=== PATIENT | female | born 1985 | race Hispanic/Latino ===

== ENCOUNTER 2024-03-28 14:03 | Emergency (ER) | payer BC, OTHER, MEDICARE ==
[~2024-03-28] VITALS: Ht 149.9 cm; Wt 63.5 kg
[~2024-03-28 14:03] MED LIST: ALPR-411 PO; ALPR-412 PO; CARB200T PO; FLUO60TA PO; IBUP-2070 PO; LEUP3.75 IM; NORE5TAB7 PO; PROZAC; TEGRETOL; TOPAMAX; TOPI25TA48 PO; TYL3 PO; ZOLP5TAB8 PO
[2024-03-28 14:27] LABS: BASOPHILS # (AUTO) 0.04 K/uL (0.00-0.20); BASOPHILS % (AUTO) 0.7 % (0.0-5.0); EOSINOPHILS # (AUTO) 0.07 K/uL (0.00-0.70); EOSINOPHILS % (AUTO) 1.2 % (0.0-8.0); HEMATOCRIT 39.6 % (36-48); LYMPHOCYTES # (AUTO) 2.6 K/uL (1.0-4.8); MEAN CORPUSCULAR HEMOGLOBIN 30.6 pg (27.0-33.0); MEAN CORPUSCULAR HGB CONC 35.1 g/dL (32.0-36.0); MEAN CORPUSCULAR VOLUME 87.2 fL (79-99); MONOCYTES # (AUTO) 0.7 K/uL (0.1-1.0); NEUTROPHILS # (AUTO) 2.7 K/uL (1.8-7.7); NEUTROPHILS % (AUTO) 45.1 % (40.0-77.0); PLATELET COUNT (AUTO) 305 K/uL (130-400); RED BLOOD CELL COUNT(AUTO) 4.54 MIL/uL (4.00-5.50); RED CELL DISTRIBUTION WIDTH 13.2 % (11.0-15.5); WHITE BLOOD COUNT (AUTO) 6.1 K/uL (4.8-10.8)
[2024-03-28 14:30] LABS: APPEARANCE,URINE CLEAR (CLEAR); BILIRUBIN,URINE NEGATIVE (NEGATIVE); COLOR,URINE YELLOW (YELLOW); GLUCOSE, URINE (UA) NEGATIVE (NEGATIVE); KETONES,URINE 5 mg/dL (NEGATIVE); LEUKOCYTE ESTERASE ,URINE NEGATIVE Leu/uL (NEGATIVE); NITRATE,URINE NEGATIVE (NEGATIVE); PROTEIN,URINE 30 mg/dL (NEGATIVE)
[2024-03-28 14:33] LABS: HCG,QUALITATIVE URINE NEGATIVE (NEGATIVE)
[2024-03-28 14:37] LABS: ADD UA MICROSCOPIC YES
[2024-03-28 14:38] LABS: CREATININE 0.6 mg/dL (0.5-1.0); POTASSIUM 3.1 mmol/L (3.5-5.1)
[2024-03-28 14:43] LABS: BACTERIA,URINE RARE /HPF (None Seen); MUCUS,URINE MANY LPF (None Seen); SQUAMOUS EPITHELIAL CELL,UR FEW /HPF (0-2)
[2024-03-28 14:43] LABS: ALBUMIN 4.1 g/dL (3.5-5.0); BILIRUBIN,TOTAL 0.6 mg/dL (0.2-1.0); TOTAL PROTEIN, SERUM 8.1 g/dL (6.0-8.3)
[2024-03-28] MEDS: 0.9%NACL 1000ML 1,000 ML IV ONE (15:12)
[2024-03-28] MEDS: KETOROLAC 30MG VIAL (30MG/ML) IVP ONE (15:13)
[2024-03-28] MEDS ORDERED: MACR100 PO (15:22)
[2024-03-28] MEDS ORDERED: PHEN-847 PO (15:22)
[2024-03-28] MEDS: POTASSIUM BICARB/CIT AC 25 MEQ TABLET.EFF PO ONE (15:55)
[2024-03-28 16:07] VITALS: BP 136/78; PULSE 78; RESP 18; O2SAT 98
== END 2024-03-28 16:07 | disposition home or self-care (01) ==
LOC: EDH 14:03
DX: N30.01 Acute cystitis with hematuria (principal); Z79.899 Other long term (current) drug therapy; Z98.890 Other specified postprocedural states; Z88.8 Allergy status to other drugs, medicaments and biological substances
CPT/HCPCS: 99284; 96374; 96361; 80053; 83690; 85025; 81001; 81025; 36415; J7030; J1885